=== PATIENT | female | born 1950 | race Caucasian/White ===

== ENCOUNTER 2020-10-14 14:05 | Outpatient (REF) | payer MEDICARE, BC, SELFPAY ==
--- NOTE | 2020-10-14 16:54 | MHC.AU.AHA ---
Adult Audiological Evaluation Date of Visit: 10/14/20 Reason for Appointment: Audiological re-evaluation to monitor the status of Ms. Macias's hearing loss. She has a known hearing loss in her left ear related to otosclerosis. She had a stapedectomy in her left ear in the early s. She has a longstanding history of hearing aid use in the left ear. She denies any significant changes to her hearing or medical history since her last visit. Previous Hearing Test Results: [facility], 10/03/2019 - Normal hearing from 250-6000 Hz sloping to a moderate hearing loss at 8000 Hz in the right ear, with a slight air-bone gap at 250-2000 Hz. Mild to moderately severe sensorineural hearing loss in the left ear. Ear History: Previous Ear Surgery: Stapedectomy in the left ear in the early . Medical History: Medical History: Breast cancer, GERD, rheumatoid arthritis, osteoarthritis. Hearing Instrument History- Left Ear: Equity Research Associate: StormMQ Model: HapBoo M50-R Serial Number: [id number] Battery Size: Rechargeable Warranty: 01/04/2023 Loss and Damage Warranty: 01/04/2023 Dispensed By: [facility] Date of Fittin10/15/2019 Otoscopy: Right Ear: Unremarkable Left Ear: Unremarkable Tympanometry: Tympanometry performed due to: History of Otosclerosis Right Ear: Normal Middle Ear System (Type A) Left Ear: Normal Middle Ear System (Type A) Hearing Evaluation: Transducer(s) Used: Insert Earphones, Bone Conduction Method: Conventional Audiometry Stimuli Used: Pure Tones Right Ear: Description of Hearing: Normal hearing from 250-6000 Hz, sloping to a moderate hearing loss at 8000 Hz. Left Ear: Description of Hearing: Mild sensorineural hearing loss 250-500 Hz, rising to normal hearing at 1000 Hz, sloping to a mild sensorineural hearing loss at 7564-9787 Hz, a mild mixed hearing loss at 4000 Hz, a mild hearing loss at 6000 Hz, and a moderately-severe hearing loss at 8000 Hz. Speech Recognition Threshold (SRT): Method Used: Monitored Live Voice Stimuli Used: Spondee Words Right Ear: 10 dBHL Left Ear: 25 dBHL Word Discrimination: Method: Recorded Lists Word Lists Used: NU-6 Right Ear: 96% at 55 dBHL Left Ear: 100% at 65 dBHL Comparison: Compared to the most recent evaluation: Hearing is stable. Recommendations: Audiological re-evaluation in one year. Hearing aid maintenance performed today. Hearing aid(s) reprogrammed with updated test results. Diagnosis: Primary Diagnosis: H90.3 Bilateral Sensorineural Hearing Loss Secondary Diagnosis: H61.23 Impacted Cerumen, Bilateral Services Performed: Comprehensive Audiological Evaluation (CPT 35233) Tympanometry (CPT 65645) Signature: Provider: Tirso Pedro, CCC-A
== END 2020-10-14 14:06 | disposition home or self-care (01) ==
LOC: HO.SH 14:05
PROVIDERS: Visit Provider Family Medicine
DX: H90.3 Sensorineural hearing loss, bilateral (principal); H61.23 Impacted cerumen, bilateral
CPT/HCPCS: 92557; 92567

== ENCOUNTER 2023-02-10 09:29 | Outpatient (REF) | payer MEDICARE, BC, SELFPAY | END 2023-02-10 09:30 | disposition home or self-care (01) | LOC: HO.SH 09:29 | PROVIDERS: Visit Provider Nurse Practitioner Family | DX: Z01.118 Encounter for examination of ears and hearing with other abnormal findings (principal); H90.A32 Mixed conductive and sensorineural hearing loss, unilateral, left ear with restricted hearing on the contralateral side; H90.A21 Sensorineural hearing loss, unilateral, right ear, with restricted hearing on the contralateral side | CPT/HCPCS: 92557; 92567 ==

== ENCOUNTER 2023-02-10 10:28 | Outpatient (REF) | payer SELFPAY ==
--- NOTE | 2023-02-10 15:21 | MHC.AU.HA3 ---
Hearing Instrument Follow-Up- Binaural Date of Visit: 02/10/23 Left Ear: Make, Model, Color, Serial Number: [id number] Facsimile Operator Repair Warranty: 01/04/2023 Facsimile Operator Loss and Damage Warranty: 01/04/2023 [facility] Service Plan: Battery Size: Rechargeable Auto Air Conditioning Mechanic/Slim Tube: 0 M Earmold/Dome/CShell/SlimTip: sm open Type of Wax Guard: Cerushield Dispensed By: [facility] Date of Fittin10/15/2019 Follow-Up Summary: Cleaned and checked aid. Replaced dome, wax guard, retention tail. Cleaned albino ports. Listening check positive. Adjusted gain slightly at 4000 Hz re: changes in audiogram today. Satisfaction reported by patient. Recommendations: Recommendations: Hearing instrument follow-up or maintenance as needed. Diagnosis Code(s): Primary Diagnosis: H90.A32 Mixed HL, Unilateral, Left Ear, W/Restricted Contralateral Secondary Diagnosis: H90.A21 SNHL, Unilateral Right Ear, W/Restricted Contralateral Hearing Signature: Provider: Nino Fajardo, [facility]
== END 2023-02-10 10:29 | disposition home or self-care (01) ==
LOC: HO.HAP 10:28
PROVIDERS: Visit Provider Family Medicine
DX: Z46.1 Encounter for fitting and adjustment of hearing aid (principal); H90.A32 Mixed conductive and sensorineural hearing loss, unilateral, left ear with restricted hearing on the contralateral side; H90.A21 Sensorineural hearing loss, unilateral, right ear, with restricted hearing on the contralateral side
CPT/HCPCS: 92592

== ENCOUNTER 2023-04-25 11:50 | Outpatient (REF) | payer SELFPAY ==
--- NOTE | 2023-04-25 12:40 | MHC.AU.HA3 ---
Hearing Instrument Follow-Up- Binaural Date of Visit: 04/25/23 Left Ear: Make, Model, Color, Serial Number: [id number] Accordion Repairer Repair Warranty: 01/04/2023 Accordion Repairer Loss and Damage Warranty: 01/04/2023 [facility] Service Plan: Battery Size: Rechargeable Donor Services Manager/Slim Tube: 0 M Earmold/Dome/CShell/SlimTip: sm open Type of Wax Guard: Cerushield Dispensed By: [facility] Date of Fittin10/15/2019 Follow-Up Summary: Left aid dropped off with communication and outreach manager damaged. Replaced. Listening check positive. Recommendations: Recommendations: Hearing instrument follow-up or maintenance as needed. Diagnosis Code(s): Primary Diagnosis: H90.A32 Mixed HL, Unilateral, Left Ear, W/Restricted Contralateral Secondary Diagnosis: H90.A21 SNHL, Unilateral Right Ear, W/Restricted Contralateral Hearing Signature: Provider: Nino Parada, CCC-A
== END 2023-04-25 11:51 | disposition home or self-care (01) ==
LOC: HO.HAP 11:50
PROVIDERS: Visit Provider Family Medicine
DX: M13.89 Other specified arthritis, multiple sites (principal)

== ENCOUNTER 2023-04-26 10:28 | Outpatient (REF) | payer SELFPAY | END 2023-04-26 10:29 | disposition home or self-care (01) | LOC: HO.HAP 10:28 | PROVIDERS: Visit Provider Family Medicine | DX: Z46.1 Encounter for fitting and adjustment of hearing aid (principal); H90.A32 Mixed conductive and sensorineural hearing loss, unilateral, left ear with restricted hearing on the contralateral side | CPT/HCPCS: V5299 ==